=== PATIENT | male | born 1970 | race Caucasian/White ===

== ENCOUNTER 2017-11-11 13:20 | Emergency (ER) | payer SELFPAY ==
[2017-11-11 13:30] VITALS: BP 131/88
[2017-11-11] MEDS ORDERED: KETOROLAC TROMETHAMINE 60 MG/2 ML SDV IM ONE (14:40)
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
== END 2017-11-11 15:14 | disposition home or self-care (01) ==
LOC: ER 13:20
DX: M25.572 Pain in left ankle and joints of left foot (principal); F17.200 Nicotine dependence, unspecified, uncomplicated; I10 Essential (primary) hypertension; Z87.442 Personal history of urinary calculi
CPT/HCPCS: 99283; 96372; J1885